=== PATIENT | male | born 2000 | race Hispanic/Latino ===

== ENCOUNTER 2020-07-14 09:38 | Outpatient (CLI) | payer BC ==
--- NOTE | 2020-07-14 10:12 | RAD ---
Exam:3 views right ankle HISTORY: Pain COMPARISON: None FINDINGS: Joint spaces are preserved. Mild soft tissue swelling. Intact ankle mortise. Lateral projection does suggest possible pes planus. Dedicated lateral weightbearing foot radiograph is recommended. IMPRESSION: Soft tissue swelling. No fracture.
== END 2020-07-14 09:39 | disposition home or self-care (01) ==
LOC: BICRAD 09:38
PROVIDERS: ATTEND Family Medicine
DX: S99.911A Unspecified injury of right ankle, initial encounter (principal); M79.89 Other specified soft tissue disorders